=== PATIENT | female | born 1990 | race American Indian/Alaskan Native ===

== ENCOUNTER 2020-02-13 09:56 | Outpatient (REF) | payer OTHER, SELFPAY ==
[2020-02-13 11:58] LABS: Alanine Aminotransferase 20 U/L (0-31); Anion Gap 13 (12-20); Aspartate Amino Transferase 17 U/L (5-31); Blood Urea Nitrogen 9 mg/dL (9-16); Calcium 9.5 mg/dL (8.4-10.2); Carbon Dioxide 27 mmol/L (22-29); Chloride 103 mmol/L (96-108); Cholesterol 169 mg/dL; Estimated Glomerular Filt Rate > 60; Glucose Fasting 86 mg/dL (60-99); HDL Cholesterol 34 mg/dL; LDL Cholesterol Calculated 117 mg/dl; Potassium 4.5 mmol/l (3.3-5.1); Sodium 138 mmol/L (135-145); Triglycerides 93 mg/dL
== END 2020-02-13 09:57 | disposition home or self-care (01) ==
LOC: HO.HMGCLDS 09:56
PROVIDERS: PCP Internal Medicine; Visit Provider Internal Medicine
DX: Z00.01 Encounter for general adult medical examination with abnormal findings (principal); I10 Essential (primary) hypertension
CPT/HCPCS: 80048; 80061; 84450; 84460

== ENCOUNTER 2020-04-15 08:54 | Outpatient (REF) | payer OTHER, SELFPAY ==
[2020-04-20 13:31] LABS: HPV mRNA E6/E7 rflx Not Detected (Not Detected)
== END 2020-04-15 08:55 | disposition home or self-care (01) ==
LOC: HO.LAB 08:54
PROVIDERS: PCP Internal Medicine; Referring Provider Internal Medicine; Visit Provider Advanced Practice Midwife
DX: Z01.419 Encounter for gynecological examination (general) (routine) without abnormal findings (principal); Z11.51 Encounter for screening for human papillomavirus (HPV)
CPT/HCPCS: 36415; 87624; 88142

== ENCOUNTER → 2020-05-13 09:36 | Outpatient (BNVA) | payer OTHER, SELFPAY | PROVIDERS: PCP Internal Medicine; Visit Provider Obstetrics & Gynecology | DX: Z30.09 Encounter for other general counseling and advice on contraception (principal) | CPT/HCPCS: 99212 ==

== ENCOUNTER 2021-05-03 09:04 | Outpatient (REF) | payer OTHER, SELFPAY ==
[2021-05-03 11:22] LABS: MANUAL DIFF FLAG NO
[2021-05-03 11:38] LABS: Basophils Percent Auto 0.2 % (0-2); Eosinophils Absolute Auto 0.1 X10*3/uL (0.0-0.4); Eosinophils Percent Auto 0.8 % (0-4); Hematocrit 41.8 % (37.0-47.0); Hemoglobin 13.3 g/dl (12.0-16.0); Imm Gran Abs Auto 0.04 X10*3/uL (0.00-0.03); Imm Gran Pct Auto 0.5 % (0.0-0.4); Lymphocytes Percent Auto 24.1 % (20-40); Mean Corpuscular HGB Conc 31.8 g/dl (31.0-35.0); Mean Corpuscular Hemoglobin 29.5 pg (27.0-33.0); Mean Corpuscular Volume 92.7 fL (80.0-98.0); Mean Platelet Volume 10.6 fL (9.4-12.3); Monocytes Absolute Auto 0.6 X10*3/uL (0.1-1.2); Monocytes Percent Auto 7.4 % (2-11); Neutrophils Absolute Auto 5.5 x10*3/uL (2.0-8.3); Platelet Count 338 X10*3/uL (160-400); Red Blood Count 4.51 X10*6/uL (4.20-5.50); Red Cell Distribution Width 12.9 % (11.0-16.0); White Blood Count 8.3 X10*3/uL (4.8-10.8)
[2021-05-03 12:13] LABS: Vitamin D 25-OH Total 20.5 ng/mL (>30)
[2021-05-03 12:14] LABS: Alanine Aminotransferase 13 U/L (0-31); Anion Gap 9 (12-20); Aspartate Amino Transferase 14 U/L (5-31); Blood Urea Nitrogen 9 mg/dL (9-16); Calcium 9.7 mg/dL (8.4-10.2); Carbon Dioxide 30 mmol/L (22-29); Chloride 104 mmol/L (96-108); Cholesterol 211 mg/dL; Estimated Glomerular Filt Rate > 60; Glucose Fasting 93 mg/dL (60-99); HDL Cholesterol 34 mg/dL; LDL Cholesterol Calculated 159 mg/dl; Potassium 4.4 mmol/L (3.3-5.1); Sodium 139 mmol/L (135-145); Triglycerides 92 mg/dL
== END 2021-05-03 09:05 | disposition home or self-care (01) ==
LOC: HO.HMGCLDS 09:04
PROVIDERS: PCP Internal Medicine; Visit Provider Internal Medicine
DX: Z00.01 Encounter for general adult medical examination with abnormal findings (principal); Z86.39 Personal history of other endocrine, nutritional and metabolic disease
CPT/HCPCS: 36415; 80048; 80061; 82306; 84450; 84460; 85025

== ENCOUNTER → 2021-06-09 07:57 | Outpatient (BNVA) | payer OTHER, SELFPAY | PROVIDERS: PCP Internal Medicine; Visit Provider Advanced Practice Midwife | DX: Z01.419 Encounter for gynecological examination (general) (routine) without abnormal findings (principal) ==

== ENCOUNTER 2022-03-10 14:12 | Outpatient (REF) | payer OTHER, SELFPAY ==
--- NOTE | ~2022-03-10 | XR_ITS ---
EXAMINATION: XR KNEE, RIGHT CLINICAL INFORMATION: Pain in right knee. COMPARISON: None TECHNIQUE: Four views of the right knee. FINDINGS: No fracture. No dislocation. No joint effusion. Joint spaces are normal. No soft tissue calcification. Sharply marginated ovoid hypodense lesion distal metaphysis of the femur at the lateral side of the bone measuring 0.8 cm. This has a sharp transition zone. No abnormal periosteal reaction. Radiographically benign lesion. 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 XR/XR knee RT 4V IMPRESSION: 1. No acute abnormality. 2. Sharply marginated ovoid hypodense lesion distal femur. 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
== END 2022-03-10 14:13 | disposition home or self-care (01) ==
LOC: HO.HMGCX 14:12
PROVIDERS: PCP Internal Medicine; Visit Provider Internal Medicine
DX: M25.561 Pain in right knee (principal)
CPT/HCPCS: 73564

== ENCOUNTER 2022-05-05 08:42 | Outpatient (REF) | payer OTHER, SELFPAY ==
[2022-05-05 13:43] LABS: Alanine Aminotransferase 14 U/L (0-31); Anion Gap 13 (12-20); Aspartate Amino Transferase 14 U/L (5-31); Blood Urea Nitrogen 7 mg/dL (9-16); Calcium 9.7 mg/dL (8.4-10.2); Carbon Dioxide 29 mmol/L (22-29); Chloride 103 mmol/L (96-108); Cholesterol 208 mg/dL; Estimated Glomerular Filt Rate > 60; Glucose Fasting 99 mg/dL (60-99); HDL Cholesterol 37 mg/dL; LDL Cholesterol Calculated 149 mg/dl; Potassium 4.6 mmol/L (3.3-5.1); Sodium 140 mmol/L (135-145); Triglycerides 110 mg/dL
[2022-05-05 13:58] LABS: Vitamin D 25-OH Total 20.7 ng/mL (>30)
== END 2022-05-05 08:43 | disposition home or self-care (01) ==
LOC: HO.HMGCLDS 08:42
PROVIDERS: PCP Internal Medicine; Visit Provider Internal Medicine
DX: Z00.01 Encounter for general adult medical examination with abnormal findings (principal); E66.9 Obesity, unspecified; E78.5 Hyperlipidemia, unspecified; Z86.39 Personal history of other endocrine, nutritional and metabolic disease
CPT/HCPCS: 36415; 80048; 80061; 82306; 84450; 84460

== ENCOUNTER 2023-01-02 11:02 | Outpatient (AMB) | payer OTHER, SELFPAY ==
[2023-01-02 11:34] VITALS: BP 100/64; BMI 34.1
--- NOTE | 2023-01-02 11:34 | A.OFFVIS_ITS ---
Intake Vital Signs 01/02/23 11:34 Height 5 ft 6 in Weight 211 lb BMI 34.1 BP 100/64 Intake Visit Reasons: BC Consult Intake Note: Scribed for Shraddha Gan CNM by Mckinley Howard certified medical transcriptionist, on 01/02/23 at 11:50 AM, EST Allergies No Known Allergies [No Known Allergies*] Allergy (Verified 01/02/23 11:39) HPI HPI Comments History of Present Illness Details She is a premenopausal woman presenting to discuss control alternatives. She currently has an IUD, inserted 2017. IUD position was confirmed via ultrasound in 2019 due to missing IUD strings during exam. However she has complaints of her IUD moving at times, and is worried this may happen again, and that she may need this replaced now. She denies any contraindications to control such as: migraines with aura, history of DVT or pulmonary emboli, high blood pressure, liver disease, thrombolic disorders, Lupus, +MALCOM, or smoking. She complains of some occasional painful cramping, and occasional intermittent bleeding. She has a boyfriend, but is not currently sexually active. Her foster mother, Makayla Rodriguez, was not present for the appointment, but the patient would like her to be included in future discussion on this topic. [facility] Medical History Dyslipidemia History of vitamin D deficiency Annual visit for general adult medical examination with abnormal findings Obesity (BMI 35.0-39.9 without comorbidity) Mild intellectual disability Adjustment disorder with disturbance of emotion Surgical History No pertinent past surgical history Family History Father Bone cancer HTN (hypertension) CVD (cardiovascular disease) Mother HTN (hypertension) Diabetes mellitus Maternal Grandfather CVD (cardiovascular disease) Maternal Grandmother HTN (hypertension) Paternal Grandmother CVD (cardiovascular disease) Paternal Grandfather Unknown family medical history Brother No problems noted. Sister No problems noted. Son No problems noted. Daughter No problems noted. Social History Housing: House Alcohol intake: never Patient Tobacco Use Status: Never used Tobacco e-Cigarette/Vaping Use: Never Used service: No Current occupational status: unemployed Sexual orientation: Straight/Heterosexual Gender identity: Female Cognitive needs: No Hearing needs: No Vision needs: Yes Female Reproductive History Menstrual Age of Menarche: 9 control method: progestin IUCD (Mirena 05/2016) Total pregnancies: 2 Full term: 2 Number of Living Children: 2 Review of Systems Const All systems reviewed & are unremarkable except as noted in HPI and below Physical Exam Vital Signs: Last Vital Signs BP 100/64 01/02/23 11:34 BMI result Body Mass Index 34.1 Const General: cooperative, healthy appearing and no acute distress Orientation/consciousness: patient oriented x3 Neuro General: patient oriented x3 Assessment & Plan Assessment & Plan (1) control counseling: Code(s): Z30. - Encounter for other general counseling and advice on contraception Plan: Discussed: The various methods of control, including her current Mirena IUD She is currently not sexually active, I discussed the efficacy of BC methods in regards to prevention Provided her with the CDC effectiveness of family planning handout Encouraged condom use for STI if indicated. Encouraged patient to sign up for patient portal. All of her questions and concerns were addressed to the best of my ability We can discuss this at her next appointment for her AG, 04/18/23. She would like to have her foster mother, Makayla, included in this conversation (2) IUD (intrauterine device) in place: Comment: Santiago, 06/02/16 Code(s): Z97.5 - Presence of (intrauterine) contraceptive device Coding Level of Care Code Est Pt Level 3 (28901) Diagnoses control counseling Z30. IUD (intrauterine device) in place Z97.5
== END 2023-01-02 12:05 | disposition home or self-care (01) ==
PROVIDERS: PCP Internal Medicine; Visit Provider Advanced Practice Midwife
DX: Z30.09 Encounter for other general counseling and advice on contraception (principal); Z97.5 Presence of (intrauterine) contraceptive device
CPT/HCPCS: 99213

== ENCOUNTER → 2023-01-02 11:02 | Outpatient (BNVA) | payer OTHER, SELFPAY | PROVIDERS: PCP Internal Medicine; Visit Provider Advanced Practice Midwife | DX: Z30.09 Encounter for other general counseling and advice on contraception (principal); Z97.5 Presence of (intrauterine) contraceptive device | CPT/HCPCS: 99212 ==

== ENCOUNTER 2023-01-02 13:11 | Outpatient (AMB) | payer OTHER, SELFPAY ==
[2023-01-02 14:25] VITALS: BP 102/66; PULSE 86; TEMP 36.7; O2SAT 98; BMI 34.1
--- NOTE | 2023-01-02 14:25 | AM.OFFWIN_ITS ---
Intake Vital Signs 01/02/23 14:25 Height 5 ft 6 in Weight 211 lb BMI 34.1 BP 102/66 Blood Pressure Location Rt brachial Position Sitting Pulse 86 Pulse Source Pulse Oximeter Temp 98.0 F Temp Source Temporal Artery Scan Pulse Oximetry (%) 98 Oxygen Delivery Method Room Air Intake Visit Reasons: EP, left eye discomfort Intake Note: pt is here for c/o left eye discomfort, denies blurry vision or changes vision test: Right eye : 20/20, Left eye : 20/20, both eyes: 20/20, corrected Patient Tobacco Use Status: Never used Tobacco Allergies No Known Allergies [No Known Allergies*] Allergy (Verified 01/02/23 14:25) Do you need a note to return to daycare/school/sports/work: Yes HPI HPI Comments History of Present Illness Details patient is a 32-year-old female in today for sick visit. Patient reports left eye itchiness in discomfort x5 days. Patient denies any blurry vision or eye pain. She states that she noticed a small growth on the inside of her lower eyelid, that ruptured and had whitish-yellow discharge. Patient had in office eye exam. Denies fevers, trauma to the eye, change in vision. She states that she has a history of this happening before but that this is the 1st time she has sought treatment for the issue. Patient's head normocephalic, both TMs visible and pearly grajeda, sinuses nontender, Nares patent. No mastoid tenderness. Patient's right eye has white sclera and pink conjunctiva. Patient's left eye sclera and lower left ey elid shows erythema, no discharge. Pupils are PERRLA. normal accommodation for each eye. Cranial nerves 2-12 intact. Patient's trachea is midline. No lymphadenopathy. Likely has chalazion of the left eye. Patient is unlikely to have acute angle glaucoma, detached retina, or retinal arterial occlusion. Patient will be treated with erythromycin ophthalmic ointment to be taken as directed. Patient has been educated on signs and symptoms of worsening condition and when to present to the walk-in clinic and when to present to the emergency room. Patient has also been educated that she can clean her eyes using a warm compress. She has been instructed to follow-up with her PCP. [facility] Medical History (Updated 01/02/23 @ 15:42 by BABITA Palmer) [facility] Dyslipidemia History of vitamin D deficiency Annual visit for general adult medical examination with abnormal findings Obesity (BMI 35.0-39.9 without comorbidity) Mild intellectual disability Adjustment disorder with disturbance of emotion Surgical History No pertinent past surgical history Family History Father Bone cancer HTN (hypertension) CVD (cardiovascular disease) Mother HTN (hypertension) Diabetes mellitus Maternal Grandfather CVD (cardiovascular disease) Maternal Grandmother HTN (hypertension) Paternal Grandmother CVD (cardiovascular disease) Paternal Grandfather Unknown family medical history Brother No problems noted. Sister No problems noted. Son No problems noted. Daughter No problems noted. Social History Housing: House Alcohol intake: never Patient Tobacco Use Status: Never used Tobacco e-Cigarette/Vaping Use: Never Used service: No Current occupational status: unemployed Sexual orientation: Straight/Heterosexual Gender identity: Female Cognitive needs: No Hearing needs: No Vision needs: Yes Female Reproductive History Menstrual Age of Menarche: 9 Review of Systems Const All systems reviewed & are unremarkable except as noted in HPI and below Denies headache(s) Eyes Denies blind spots, Denies blurry vision, Denies exophthalmos, Denies change in vision, Denies diplopia, Reports eye discharge, Denies dry eyes, Denies floaters, Reports irritation, Reports itchy eyes and Denies loss of vision ENT Denies dizziness, Denies ear discharge, Denies headache(s) and Denies sinus pain Neuro Denies dizziness, Denies headache(s), Denies loss of vision and Denies Other visual disturbances Aller/Immun Reports itchy eyes Physical Exam Vital Signs: Last Vital Signs Temp 98.0 F 01/02/23 14:25 Pulse 86 01/02/23 14:25 BP 102/66 01/02/23 14:25 Pulse Ox 98 01/02/23 14:25 Oxygen Delivery Method Room Air 01/02/23 14:25 BMI result Body Mass Index 34.1 Vital signs have been reviewed and are unremarkable. Const General: cooperative, healthy appearing and no acute distress Orientation/consciousness: patient oriented x3 Limitations: no limitations HEENT Head: Yes normocephalic Ears: external ears normal Face and sinus: Yes face symmetric Mouth: Normal oral and palatal mucosa present Eyes Visual Davis: normal visual davis by confrontation Periorbital: periorbital findings normal Eyelids: Yes eyelid abnormality ( Left eye lower lid erythema, no discharge) Conjunctivae: other Sclerae: scleral abnormal left other ( erythema) Pupils: Equal, round and reactive pupils present and Pupil accommodation reflex normal EOM: EOMs intact bilaterally Direct Ophthalmoscopy: normal light reflex and no photophobia Neck Neck: Yes normal visual inspection Lymphatic: no lymphadenopathy noted Neuro General: patient oriented x3 and CN's II-XI intact bilaterally Cranial nerves: Yes Equal, round and reactive pupils present Assessment & Plan Assessment & Plan (1) Chalazion: Code(s): H00.19 - Chalazion unspecified eye, unspecified eyelid Qualifiers: Laterality: left Eyelid: lower Qualified Code(s): H00.15 - Chalazion left lower eyelid Plan: patient will be prescribed erythromycin ophthalmic ointment to be used as prescribed. Patient had an office exam. Patient educated on signs of worsening symptoms and when to return to the walk-in and when to present to the emergency room. patient also educated to use a warm compress to clear wash left lower eyelid. Coding Level of Care Code New Pt Level 3 (48246) Diagnoses Chalazion of left lower eyelid H00.15 Laterality: left Eyelid: lower Time Spent (min) 20
== END 2023-01-02 15:48 | disposition home or self-care (01) ==
PROVIDERS: PCP Internal Medicine; Visit Provider Nurse Practitioner Primary Care
DX: H00.15 Chalazion left lower eyelid (principal)
CPT/HCPCS: 99203; 99213

== ENCOUNTER 2023-02-01 09:49 | Outpatient (AMB) | payer OTHER, SELFPAY ==
--- NOTE | 2023-02-01 10:20 | MHC.OFFWIV ---
Intake Vital Signs 02/01/23 10:23 Height 5 ft 6 in Weight 211 lb BMI 34.1 BP 100/60 Blood Pressure Location Rt brachial Position Sitting Pulse 78 Pulse Source Pulse Oximeter Temp 97.8 F Temp Source Temporal Artery Scan Pulse Oximetry (%) 97 Oxygen Delivery Method Room Air Intake Visit Reasons: EP, left knee pain Intake Note: Pt is here c/o left knee pain. No falls or injuries noted. Patient Tobacco Use Status: Never used Tobacco Allergies No Known Allergies [No Known Allergies*] Allergy (Verified 01/02/23 14:25) Do you need a note to return to daycare/school/sports/work: No HPI HPI Comments History of Present Illness Details This is a 32-year-old female with mild intellectual disabilities who [facility] presenting independently for evaluation of left knee pain she has had since Sunday. Patient denies any injury or trauma preceding the onset of her discomfort and states her pain is worse with activity. Patient describes her pain as sharp and throbbing and it does not radiate from her knee. [facility] Medical History Chalazion Dyslipidemia History of vitamin D deficiency Annual visit for general adult medical examination with abnormal findings Obesity (BMI 35.0-39.9 without comorbidity) Mild intellectual disability Adjustment disorder with disturbance of emotion Surgical History No pertinent past surgical history Family History Father Bone cancer HTN (hypertension) CVD (cardiovascular disease) Mother HTN (hypertension) Diabetes mellitus Maternal Grandfather CVD (cardiovascular disease) Maternal Grandmother HTN (hypertension) Paternal Grandmother CVD (cardiovascular disease) Paternal Grandfather Unknown family medical history Brother No problems noted. Sister No problems noted. Son No problems noted. Daughter No problems noted. Social History Housing: House Alcohol intake: never Patient Tobacco Use Status: Never used Tobacco e-Cigarette/Vaping Use: Never Used service: No Current occupational status: unemployed Sexual orientation: Straight/Heterosexual Gender identity: Female Cognitive needs: No Hearing needs: No Vision needs: Yes Female Reproductive History Menstrual Age of Menarche: 9 Review of Systems Const All systems reviewed & are unremarkable except as noted in HPI and below Musc Reports arthralgias (left knee) Skin/Breast Reports system reviewed and no additional complaints, except as documented Physical Exam Vital Signs: Last Vital Signs Temp 97.8 F 02/01/23 10:23 Pulse 78 02/01/23 10:23 BP 100/60 02/01/23 10:23 Pulse Ox 97 02/01/23 10:23 Oxygen Delivery Method Room Air 02/01/23 10:23 BMI result Body Mass Index 34.1 Const General: cooperative, healthy appearing, comfortable and no acute distress Nutritional Appearance: average body habitus Orientation/consciousness: oriented to person, oriented to place and oriented to time Limitations: no limitations Skin General skin exam: no rashes or lesions noted Neuro General: oriented to person, oriented to place and oriented to time Extrem General: Yes normal to inspection, Yes full ROM and Yes no calf tenderness Left lower extremity: knee Details: normal to inspection and tenderness (distal quadriceps tendon; no pain to palpation of knee joint or posterior fossa) Location: of the distal upper leg; not of the patella, not of the popliteal fossa, not of the medial joint line and not of the lateral joint line Psych Appearance: grossly normal Mental Status: mental status grossly normal Insight: Good insight present (Psych) Judgement: Good judgement present (Psych) Assessment & Plan Assessment & Plan (1) Quadriceps tendonitis: Code(s): M76.899 - Other specified enthesopathies of unspecified lower limb, excluding foot Plan: Naprosyn 500mg q12 hours, activity as tolerated. Patient to follow-up with PCP within one month for a reevaluation of her symptoms. Medications: New naproxen (Naprosyn) 500 mg PO BID 20 tabs 0RF Coding Level of Care Code Est Pt Level 3 (56285) Diagnoses Quadriceps tendonitis M76.899 Time Spent (min) 20
[2023-02-01 10:23] VITALS: BP 100/60; PULSE 78; TEMP 36.6; O2SAT 97; BMI 34.1
== END 2023-02-01 10:57 | disposition home or self-care (01) ==
PROVIDERS: PCP Internal Medicine; Visit Provider Physician Assistant
DX: M76.899 Other specified enthesopathies of unspecified lower limb, excluding foot (principal)
CPT/HCPCS: 99213

== ENCOUNTER 2023-07-31 14:27 | Outpatient (AMB) | payer OTHER, SELFPAY ==
[2023-07-31 14:40] VITALS: BP 112/70; BMI 33.1
--- NOTE | 2023-07-31 14:40 | MHC.OFFVIS ---
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 And pain on Sunday and she called today for this appointment and was given to her. She has a Mirena IUD that has been in since May 2016 periodically the strings have been missing she was told that it could used for another while. She has not had sex in a long time since her children were born she does have a boyfriend but she has been holding off because she wants to be sure that she has it working IUD. She also has interested in getting her tubes tied. This periods started Sunday and that has when the painful cramps started to she takes time and offer the cramps and it helps PFS Medical History Chalazion Dyslipidemia History of vitamin D deficiency Annual visit for general adult medical examination with abnormal findings Obesity (BMI 35.0-39.9 without comorbidity) Mild intellectual disability Adjustment disorder with disturbance of emotion Surgical History No pertinent past surgical history Family History Father Bone cancer HTN (hypertension) CVD (cardiovascular disease) Mother HTN (hypertension) Diabetes mellitus Maternal Grandfather CVD (cardiovascular disease) Maternal Grandmother HTN (hypertension) Paternal Grandmother CVD (cardiovascular disease) Paternal Grandfather Unknown family medical history Brother No problems noted. Sister No problems noted. Son No problems noted. Daughter No problems noted. Social History Housing: House Alcohol intake: never Patient Tobacco Use Status: Never used Tobacco e-Cigarette/Vaping Use: Never Used service: No Current occupational status: unemployed Sexual orientation: Straight/Heterosexual Gender identity: Female Cognitive needs: No Hearing needs: No Vision needs: Yes Female Reproductive History Menstrual Age of Menarche: 9 Duration of menses: other Date of last menstrual period: 08/24/23 control method: progestin IUCD Total pregnancies: 2 Full term: 2 Date of last pap smear: 04/16/20 (negative,previous pap 2019,WNL) History of abnormal pap smear: No Physical Exam Vital Signs: Last Vital Signs BP 112/70 07/31/23 14:40 BMI result Body Mass Index 33.1 Other: External exam evidence of perineal obstetrical laceration Heavy menses noted multiparous cervix pink smooth healthy appearing no Mirena strings visible nor made visible with probe of Q-tips Cervix mobile nontender unclear if edge of string palpable during exam or not Uterus moderate sized midposition mobile nontender External Female Exam: normal external appearance Speculum Exam - Vagina: normal appearance of the vagina and normal vaginal discharge Speculum Exam - Cervix: normal appearance of the cervix Bimanual exam- vagina & uterus: normal bimanual exam, uterine size normal, consistency normal, uterine mobility normal, uterine shape normal and non-tender Bimanual Exam- Adnexa, other: normal adnexae, no masses and No adnexal tenderness Results Reviewed Results Reviewed: Name: Ramana Monteiro Age/Sex: 29/F Attending: Shraddha Gan CNM : 1990 Submitted by: Shraddha Gan CNM Copies to: Batsheva Conley MD MR #: [id number] Status: DEP REF Collected: 04/15/20 Location: .LAB Received: 04/16/20 Interpretation Satisfactory for evaluation. Scant cellularity due to blood. Negative for intraepithelial lesion or malignancy. Mild inflammation. HPV mRNA E6/E7: NOT DETECTED This assay detects E6/E7 viral messenger RNA (mRNA) from 14 high-risk HPV types (16, 18, 31, 33, 35, 39, 45, 51, 52, 56, 58, 59, 66, 68) HPV testing performed by [facility], [place], [place]. See reference laboratory portion of the EMR for entire report. Clinical Information LMP: 02/27/20 Previous PAP test: 06/28/18, WNL Material Received ThinPrep Cervical Copies To Batsheva Conley MD [facility] [facility] [address] [place] [id number] Shraddha Gan [address] [place] [facility] [place] [id number] Electronically Signed By: Louise Aguayo 04/24/20 1321 The Pap Test is a screening procedure with the inherent possibility of both false negative and false positive results. Results should be interpreted in the context of historic and current clinical findings. Reliability of the Pap Test is enhanced by performing the test on a regular repetitive basis. Patient: Page 1 of 1 Assessment & Plan Assessment & Plan (1) IUD (intrauterine device) in place: Comment: Mirena, 06/02/16 Code(s): Z97.5 - Presence of (intrauterine) contraceptive device Category: Social Hx (2) IUD complication: Comment: patient having increased pain and heavy menses x5 months, especially since Wednesday 07/26 Code(s): T83.9XXA - Unspecified complication of genitourinary prosthetic device, implant and graft, initial encounter Category: Medical Plan Before the exam discussed that if it appeared that it was coming out I would remove it. However I am unable to even see the strings. Apparently the strings have been missing in the past as well I am ordering an ultrasound to be done this week to verify location but she will need to have removal and replacement of the Mirena IUD scheduled with 1 of the providers at the [address] office where there was the ability to have access to the right instruments. She also has interested in talking about tubal ligation and has discussed this in the past. She does not want to get her period Anymore and it has been heavy since beginning of the year in very painful and crampy for her. I am ordering an ultrasound to check for the placement but while she will may need a tele visit to review the results of the ultrasound her next physical appointment should be with 1 of the providers at [facility] to possibly replace the Mirena. Orders: Orders US pelvic and transvaginal Today T83.9XXA - Unspecified complication of genitourinary prosthetic device, implant and graft, initial encounter, Z97.5 - Presence of (intrauterine) contraceptive device Coding Level of Care Code Est Pt Level 3 (27979) Diagnoses IUD (intrauterine device) in place Z97.5 IUD complication T83.9XXA
== END 2023-08-01 10:17 | disposition home or self-care (01) ==
LOC: HO.HWSM 14:27
PROVIDERS: PCP Internal Medicine; Visit Provider Advanced Practice Midwife
DX: N93.9 Abnormal uterine and vaginal bleeding, unspecified (principal); T83.9XXA Unspecified complication of genitourinary prosthetic device, implant and graft, initial encounter
CPT/HCPCS: 99213

== ENCOUNTER 2023-07-31 14:27 | Outpatient (REF) | payer OTHER, SELFPAY ==
[2023-08-01 07:25] LABS: CT PCR NOT DETECTED (Not Detect.); NG PCR NOT DETECTED (Not Detect.)
[2023-08-01 10:51] LABS: Bacterial Vaginosis PCR POSITIVE (Negative); Candida Group PCR NOT DETECTED (Not Detect); Candida glab krusei PCR NOT DETECTED (Not Detect); Trichomonas vaginalis PCR NOT DETECTED (Not Detect)
== END 2023-07-31 14:28 | disposition home or self-care (01) ==
LOC: HO.LAB 14:27
PROVIDERS: PCP Internal Medicine; Visit Provider Advanced Practice Midwife
DX: Z87.42 Personal history of other diseases of the female genital tract (principal)
CPT/HCPCS: 0352U; 0353U; 99212

== ENCOUNTER 2023-08-07 12:36 | Outpatient (REF) | payer OTHER, SELFPAY ==
--- NOTE | ~2023-08-07 | US_ITS ---
EXAMINATION: US PELVIS CLINICAL INFORMATION: Missing IUD string, last menstrual period 07/30/2023, IUD since 2017. COMPARISON: 02/28/2018 TECHNIQUE: Ultrasound of the pelvis is performed using both transabdominal and transvaginal transducers along with Doppler. Transvaginal imaging is performed due to inadequate visualization transabdominally. FINDINGS: The uterus is anteverted and measures 7.9 x 4.9 x 5.[address] within the endometrial cavity. Endometrium is difficult to evaluate due to shadowing from the IUD. No significant free fluid. Right ovary measures 3.2 x 1.8 x 2.6 cm, volume 7.7 mL and is unremarkable. Left ovary measures 3.1 x 2.0 x 2.6 cm, volume 8.3 mL and is unremarkable. Left ovarian 2.2 cm simple cyst is likely physiologic. There is no indication for additional imaging at this time US/US pelvic and transvaginal IMPRESSION: IUD in place within the endometrial cavity. Endometrium is difficult to evaluate due to shadowing from the IUD.
== END 2023-08-07 12:37 | disposition home or self-care (01) ==
LOC: HO.US 12:36
PROVIDERS: PCP Internal Medicine; Visit Provider Advanced Practice Midwife
DX: T83.9XXA Unspecified complication of genitourinary prosthetic device, implant and graft, initial encounter (principal)
CPT/HCPCS: 76830; 76856

== ENCOUNTER 2023-08-16 09:31 | Outpatient (AMB) | payer OTHER, SELFPAY ==
[2023-08-16 10:25] VITALS: BP 116/68; BMI 33.2
--- NOTE | 2023-08-16 10:25 | A.OFFVIS_ITS ---
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 Patient was seen by this provider they beginning of the month for discussion about this and because she is bleeding and having more pain with her perio With the Mirena. She knows it it is pretty much she has had it in for since 2017 she has been avoiding intercourse because she does not want to get she wants a very reliable method of control and she wishes to have her tubes tied. She was examined and plan was made for removal if it appeared that it was being expelled however strings were not visible at all. Patient was sent for ultrasound for assessment of the Mirena however reading of the ultrasound has not yet occurred call placed today for telephone reading and unofficial reading is that the IUD appeared in normal position on the 08/07/2023 ultrasound. Discussed with the patient if it is possible and I can see the string today if she wishes I will remove it but if not she will still need to return to the [facility] office as originally planned for removal of the IUD. I additionally talked to her about an interim method while she does want to get her tubes tied she does not want to get I offered her control pills or Depo-Provera and she thought about it and chose Depo-Provera I explained about Depo-Provera and side effects and the best time to started is with her next period which should be starting next week. Prescription sent for Depo-Provera side effects fully discussed patient to call office at the start of her menses and receive the Depo-Provera shot there and also schedule Mirena removal and tubal ligation consult with the MD. IUD string was not visible with probing of the cervix with Cytobrush so plan is as of patient is in agreement with the plan. [facility] Medical History Chalazion Dyslipidemia History of vitamin D deficiency Annual visit for general adult medical examination with abnormal findings Obesity (BMI 35.0-39.9 without comorbidity) Mild intellectual disability Adjustment disorder with disturbance of emotion Surgical History No pertinent past surgical history Family History Father Bone cancer HTN (hypertension) CVD (cardiovascular disease) Mother HTN (hypertension) Diabetes mellitus Maternal Grandfather CVD (cardiovascular disease) Maternal Grandmother HTN (hypertension) Paternal Grandmother CVD (cardiovascular disease) Paternal Grandfather Unknown family medical history Brother No problems noted. Sister No problems noted. Son No problems noted. Daughter No problems noted. Social History Housing: House Alcohol intake: never Patient Tobacco Use Status: Never used Tobacco e-Cigarette/Vaping Use: Never Used service: No Current occupational status: unemployed Sexual orientation: Straight/Heterosexual Gender identity: Female Cognitive needs: No Hearing needs: No Vision needs: Yes Female Reproductive History Menstrual Age of Menarche: 9 Duration of menses: <3 days Date of last menstrual period: 07/24/23 control method: progestin IUCD Total pregnancies: 2 Full term: 2 Date of last pap smear: 04/16/20 (neg.previous pap 2019 WNL) History of abnormal pap smear: No Physical Exam Vital Signs: Last Vital Signs BP 116/68 08/16/23 10:25 BMI result Body Mass Index 33.2 Other: Normal multiparous pink healthy cervix with normal healthy mucous seen cervix probed with Cytobrush no Mirena string possible to be. External Female Exam: normal external appearance and normal appearance of the urethra Speculum Exam - Vagina: normal appearance of the vagina and normal vaginal discharge Speculum Exam - Cervix: normal appearance of the cervix and Cervical os closed Results AMB Test Urine AMB Test Urine Negative Last Edit by Tyra Quinonez CMA on 08/16/23 10:40 Results Reviewed Results Reviewed: Laboratory Last Values Tst Clinic Negative 08/16/23 10:33 Verbal re being reading of ultrasound done 08/07/2023 showed that the IUD appears in the normal position it has not yet been officially read by Radiology. Assessment & Plan Assessment & Plan (1) IUD complication: Comment: patient having increased pain and heavy menses x5 months, especially since Wednesday 07/26; See note her ultrasound IUDs in place IUD string is still not visible it is not possible to remove it in this office. Patient counseled about control will start on Depo-Provera with start of next menses and patient to see MD for removal of Mirena if possible in office at 05:01 and tubal ligation consultation. Code(s): T83.9XXA - Unspecified complication of genitourinary prosthetic device, implant and graft, initial encounter Category: Medical (2) control counseling: Code(s): Z30.09 - Encounter for other general counseling and advice on contraception Category: Medical (3) Depo-Provera contraceptive status: Code(s): Z30.42 - Encounter for surveillance of injectable contraceptive Category: Social Hx Plan Patient is scheduled at the [facility] for a Mirena removal. Patient was seen by this provider they beginning of the month for discussion about this and because she is bleeding and having more pain with her period With the Mirena. She knows it it is pretty much she has had it in for since 2017 she has been avoiding intercourse because she does not want to get she wants a very reliable method of control and she wishes to have her tubes tied. She was examined and plan was made for removal if it appeared that it was being expelled however strings were not visible at all. Patient was sent for ultrasound for assessment of the Mirena however reading of the ultrasound has not yet occurred call placed today for telephone reading and unofficial reading is that the IUD appeared in normal position on the 08/07/2023 ultrasound. Discussed with the patient if it is possible and I can see the string today if she wishes I will remove it but if not she will still need to return to the [facility] office as originally planned for removal of the IUD. I additionally talked to her about an interim method while she does want to get her tubes tied she does not want to get I offered her control pills or Depo-Provera and she thought about it and chose Depo-Provera I explained about Depo-Provera and side effects and the best time to started is with her next period which should be starting next week. Prescription sent for Depo-Provera side effects fully discussed patient to call office at the start of her menses and receive the Depo-Provera shot there and also schedule Mirena removal and tubal ligation consult with the MD. IUD string was not visible with probing of the cervix with Cytobrush so plan is as of patient is in agreement with the plan. Orders: Orders AMB HCG Urine Test Today Z32.02 - Encounter for test, result negative Medications: New medroxyprogesterone (Depo-Provera) To be given with start of next menses. Mirena IU S(inserted 2016, full menses returned 6 months ago) most likely to be removed when possible. 150 mg IM Q12W 1 mL 5RF Coding Level of Care Code Est Pt Level 3 (71348) Diagnoses IUD complication T83.9XXA control counseling Z30.09 Depo-Provera contraceptive status Z30.42
== END 2023-08-16 11:56 | disposition home or self-care (01) ==
LOC: HO.HWSM 09:31
PROVIDERS: PCP Internal Medicine; Visit Provider Advanced Practice Midwife
DX: T83.9XXA Unspecified complication of genitourinary prosthetic device, implant and graft, initial encounter (principal); Z30.09 Encounter for other general counseling and advice on contraception; Z30.42 Encounter for surveillance of injectable contraceptive; Z32.02 Encounter for pregnancy test, result negative
CPT/HCPCS: 99213

== ENCOUNTER → 2023-08-16 09:31 | Outpatient (BNVA) | payer OTHER, SELFPAY | PROVIDERS: PCP Internal Medicine; Visit Provider Advanced Practice Midwife | DX: T83.9XXA Unspecified complication of genitourinary prosthetic device, implant and graft, initial encounter (principal); Z30.09 Encounter for other general counseling and advice on contraception; Z30.42 Encounter for surveillance of injectable contraceptive | CPT/HCPCS: 81025; 99212 ==

== ENCOUNTER 2023-08-22 14:20 | Outpatient (AMB) | payer OTHER, SELFPAY ==
--- NOTE | 2023-08-22 14:18 | A.OFFVIS_ITS ---
Intake Visit Reasons: TV Ultrasound Results Allergies No Known Allergies [No Known Allergies*] Allergy (Verified 08/22/23 14:18) Medication List - Last Reconciled 08/22/23 by Leatha Morales CNM guaifenesin 200 mg PO Q4H PRN levonorgestrel (Mirena) intrauterine medroxyprogesterone (Depo-Provera) 150 mg IM Q12W Is last menstrual period known: Yes Last menstrual period: 07/31/23 HPI HPI TV Ultrasound Results: Details: This is a tele visit to review patient's ultrasound results which was done to confirm the presence of her Mirena IUD within the uterus because her strings were not visible and could not be retrieved with Cytobrush Patient has had Mirena in many years and believes it has stopped function because her periods returned 5-6 months ago and are getting heavier in crampier She does not want to get and so she has been abstaining from sex until she can be protected from . She actually wants to get her tubes tied and so she has an appointment already set up to see Dr. Peng for tubal ligation consultation and also the Mirena as the strings were not able to be retrieved here so removal in this office was not possible. I have also prescribed Depo-Provera for her to get when she has her next. It has already been delivered to her house by her pharmacy and she has it and is just waiting for her next. She has the tubal consultation appointment IUD removal already set up. [facility] Medical History Chalazion Dyslipidemia History of vitamin D deficiency Annual visit for general adult medical examination with abnormal findings Obesity (BMI 35.0-39.9 without comorbidity) Mild intellectual disability Adjustment disorder with disturbance of emotion Surgical History No pertinent past surgical history Family History Father Bone cancer HTN (hypertension) CVD (cardiovascular disease) Mother HTN (hypertension) Diabetes mellitus Maternal Grandfather CVD (cardiovascular disease) Maternal Grandmother HTN (hypertension) Paternal Grandmother CVD (cardiovascular disease) Paternal Grandfather Unknown family medical history Brother No problems noted. Sister No problems noted. Son No problems noted. Daughter No problems noted. Social History Housing: House Alcohol intake: never Patient Tobacco Use Status: Never used Tobacco e-Cigarette/Vaping Use: Never Used service: No Current occupational status: unemployed Sexual orientation: Straight/Heterosexual Gender identity: Female Cognitive needs: No Hearing needs: No Vision needs: Yes Female Reproductive History Menstrual Age of Menarche: 9 Date of last menstrual period: 07/31/23 control method: progestin IUCD Telehealth Telehealth Telehealth Platform: Telephone Location of provider rendering services: practice address Location of patient: address on file Patient Identification confirmed using: Name, : Yes Telehealth method: voice only Patient verbally consented to treatment: Yes Patient verbally consented to billing insurance company: Yes Patient informed of any privacy concerns related to visit: Yes Minutes spent on Phone/Video with Pt.: 11 Results Reviewed Results Reviewed: Patient: Ramana Monteiro MR#: [id number] : 1990 Acct:[id number] Age/Sex: 32 / F ADM Date: 08/07/23 Loc: HO.US Attending Dr: Leatha Morales CNM Ordering Physician: Leatha Morales CNM Date of Service: 08/07/23 Procedure(s): US pelvic and transvaginal Accession Number(s): [id number] cc: Batsheva Conley MD; Leatha Morales CNM~ EXAMINATION: US PELVIS CLINICAL INFORMATION: Missing IUD string, last menstrual period 07/30/2023, IUD since 2016. COMPARISON: 02/28/2018 TECHNIQUE: Ultrasound of the pelvis is performed using both transabdominal and transvaginal transducers along with Doppler. Transvaginal imaging is performed due to inadequate visualization transabdominally. FINDINGS: The uterus is anteverted and measures 7.9 x 4.9 x 5.[address] within the endometrial cavity. Endometrium is difficult to evaluate due to shadowing from the IUD. No significant free fluid. Right ovary measures 3.2 x 1.8 x 2.6 cm, volume 7.7 mL and is unremarkable. Left ovary measures 3.1 x 2.0 x 2.6 cm, volume 8.3 mL and is unremarkable. Left ovarian 2.2 cm simple cyst is likely physiologic. There is no indication for additional imaging at this time US/US pelvic and transvaginal IMPRESSION: IUD in place within the endometrial cavity. Endometrium is difficult to evaluate due to shadowing from the IUD. Dictated By: Luz John MD Signed By: <Electronically signed by Luz John MD in OV> 08/20/23 1341 DD/ 1345 TD/TT: Medicare Sales Representative: Assessment & Plan Assessment & Plan (1) Depo-Provera contraceptive status: Code(s): Z30.42 - Encounter for surveillance of injectable contraceptive Category: Social Hx (2) IUD complication: Comment: patient having increased pain and heavy menses x5 months, especially since Wednesday 07/26; See note her ultrasound IUDs in place IUD string is still not visible it is not possible to remove it in this office. Patient counseled about control will start on Depo-Provera with start of next menses and patient to see MD for removal of Mirena if possible in office at 05:01 and tubal ligation consultation. Code(s): T83.9XXA - Unspecified complication of genitourinary prosthetic device, implant and graft, initial encounter Category: Medical (3) IUD (intrauterine device) in place: Comment: Mirena, 06/02/16 Code(s): Z97.5 - Presence of (intrauterine) contraceptive device Category: Social Hx Plan This is a tele visit to review patient's ultrasound results which was done to confirm the presence of her Mirena IUD within the uterus because her strings were not visible and could not be retrieved with Cytobrush Patient has had Mirena in many years and believes it has stopped function because her periods returned 5-6 months ago and are getting heavier in crampier She does not want to get and so she has been abstaining from sex until she can be protected from . She actually wants to get her tubes tied and so she has an appointment already set up to see Dr. Peng for tubal ligation consultation and also the Mirena as the strings were not able to be retrieved here so removal in this office was not possible. I have also prescribed Depo-Provera for her to get when she has her next. It has already been delivered to her house by her pharmacy and she has it and is just waiting for her next. She has the tubal consultation appointment IUD removal already set up. In addition I reviewed the ultrasound results with her due to completely within and verifying the IUD in utero and a simple cyst in ovary. Coding Level of Care Code Tele Est Pt Level 3 (45326) Diagnoses Depo-Provera contraceptive status Z30.42 IUD complication T83.9XXA IUD (intrauterine device) in place Z97.5
== END 2023-08-22 14:28 | disposition home or self-care (01) ==
LOC: HO.HWSM 14:20
PROVIDERS: PCP Internal Medicine; Visit Provider Advanced Practice Midwife
DX: Z30.42 Encounter for surveillance of injectable contraceptive (principal); T83.9XXA Unspecified complication of genitourinary prosthetic device, implant and graft, initial encounter; Z97.5 Presence of (intrauterine) contraceptive device
CPT/HCPCS: 99213

== ENCOUNTER → 2023-08-22 14:20 | Outpatient (BNVA) | payer OTHER, SELFPAY | PROVIDERS: PCP Internal Medicine; Visit Provider Advanced Practice Midwife ==

== ENCOUNTER 2023-09-26 08:43 | Outpatient (AMB) | payer OTHER, SELFPAY ==
--- NOTE | 2023-09-26 08:48 | A.OFFVIS_ITS ---
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 The patient had Mirena IUD inserted in 2017 over the last 2 years been having more pelvic cramping. On pelvic exam by Leatha Morales CNM the string was not seen, pelvic ultrasound was done and showed IUD in appropriate position [facility] Medical History Chalazion Dyslipidemia History of vitamin D deficiency Annual visit for general adult medical examination with abnormal findings Obesity (BMI 35.0-39.9 without comorbidity) Mild intellectual disability Adjustment disorder with disturbance of emotion Surgical History No pertinent past surgical history Family History Father Bone cancer HTN (hypertension) CVD (cardiovascular disease) Mother HTN (hypertension) Diabetes mellitus Maternal Grandfather CVD (cardiovascular disease) Maternal Grandmother HTN (hypertension) Paternal Grandmother CVD (cardiovascular disease) Paternal Grandfather Unknown family medical history Brother No problems noted. Sister No problems noted. Son No problems noted. Daughter No problems noted. Social History Housing: House Alcohol intake: never Patient Tobacco Use Status: Never used Tobacco e-Cigarette/Vaping Use: Never Used service: No Current occupational status: unemployed Sexual orientation: Straight/Heterosexual Gender identity: Female Cognitive needs: No Hearing needs: No Vision needs: Yes Female Reproductive History Menstrual Age of Menarche: 9 Date of last menstrual period: 09/18/23 control method: progestin IUCD Review of Systems Const All systems reviewed & are unremarkable except as noted in HPI and below Physical Exam Vital Signs: Last Vital Signs BP 122/74 09/26/23 08:56 BMI result Body Mass Index 33.1 General: Yes no CVA tenderness External Female Exam: normal external appearance and normal appearance of the urethra Speculum Exam - Vagina: normal appearance of the vagina, normal palpation, no lesions and no masses Speculum Exam - Cervix: normal appearance of the cervix, normal palpation, no lesions, no masses and nontender Bimanual exam- vagina & uterus: normal bimanual exam, normal palpation, uterine size normal, normal palpation, uterine shape normal, No Cervical tenderness present and non-tender Bimanual Exam- Adnexa, other: normal adnexae Back/Spine/Pelvis Back: no CVA tenderness Office Procedures IUD Insert/Removal Details Details: The patient is presenting for IUD removal and IUD reinsertion. Her last menstrual period was within the last 5 days, Urine test was done in the office and was negative; All the contraindications were excluded. The following possible complications were discussed with the patient: Intrauterine , Ectopic , Sepsis, Pelvic Infection, Irregular Bleeding and Amenorrhea, Perforation, Expulsion, Ovarian Cysts, Breast Cancer. The following adverse effects were discussed with the patient: alteration of menstrual bleeding pattern, including: unscheduled uterine bleeding decreased uterine bleeding increased scheduled uterine bleeding female genital tract bleeding ,amenorrhea , genital discharge , vulvovaginitis , breast pain , benign ovarian cyst and associated complications , dysmenorrhea , Gastrointestinal disorders abdominal/pelvic pain, headache/migraine , back pain , acne , depression Alternative options were discussed with the patient including but not limited: control pills, patch, NuvaRing, Depo-medroxyprogesterone acetate, Nexplanon, copper IUD, sterilization, vasectomy, others The procedure was explained in detail to patient , at the end patient signed the informed consent obtained. Alternative options were discussed with the patient The patient signed the consent and agreed with the plan; all questions answered. Urine test was done in the office and was negative Preop dx: Requesting IUD removal and Reinsertion Op: IUD removal and Mirena insertion Post op dx: same EBL= 10 cc Procedure: The patient was put in the dorsal lithotomy position a speculum was inserted in the vagina the IUD thread identified. Using a Delmy clamp the thread was grasped and the IUD pulled out with no complications. A no touch technique was used throughout the procedure. A speculum was placed into vagina and cervix was cleaned with betadine). A tenaculum was placed. A plastic sound was advanced through the external and internal os until it reached the fundus of the uterus, the depth was 8 cm. The sound was then withdrawn. The IUD was loaded in a sterile manner and advanced into position. The string was visualized and cut to 3 cm. Tenaculum site hemostatic. All instruments removed from vagina. Patient tolerated the procedure well. NO complications were noted. Patient was instructed to call for fever over 100.4, significant pain unrelieved by Motrin, IUD expulsion, heavy bleeding, or abnormal discharge. In addition, the following clinical considerations were discussed with the patient to call for removal: A stroke or heart attack ,Very severe or migraine headaches ,Unexplained fever ,Yellowing of the skin or whites of the eyes, as these may be signs of serious liver problems , or suspected , Pelvic pain or pain during sex ,HIV positive seroconversion in herself or her partner , Possible exposure to sexually transmitted infections Unusual vaginal discharge or genital sores , severe vaginal bleeding or bleeding that lasts a long time, or if she misses a menstrual period, Inability to feel Mirena's threads Counseled the patient that the IUD does not protect against STI's, recommended use of condoms for the first 7 days post insertion and explained to the patient that condoms are recommended for patients at risk for sexually transmitted infections. Follow up appointment made for 4 weeks following insertion. Date of removal in no more than five years for DUB treatment and 8 years for contraception from today?s date was d/w patient. This note was generated with a voice recognition program. Some errors may have been overlooked during the review of this note. Sometimes these errors may affect the content or meaning of a given sentence. 23202-IKH Insertion 76800-ADP Removal Procedure code (CPT) selection complete Office Meds Mirena 21 mcg/24 hr (up to 8 years) 52 mg intrauterine device Performing Provider: Bo Peng MD [place] [facility] [place] [facility] Documented (not given) by: Bo Peng MD on 09/26/23 09:34 Dose Route Admin Location Dispensed Lot Number Expiration Date [facility] Polysomnography Technician 1 device intrauterine ea Assessment & Plan Assessment & Plan (1) Family planning: Code(s): Z30.09 - Encounter for other general counseling and advice on contraception Category: Medical Plan: Discussed with the patient the different options of control including control pills/Nuvaring, DMPA, different types of IUD ?s ( cu vs progesterone) , sterilization. All the pros, cons, risks and benefits of each were discussed with the patient. The patient decided to go ahead with Mirena IUD removal and reinsertion, explained to the patient that Mirena IUD is FDA for 8 years for contraception in 5 years for menorrhagia, the patient is requesting replacement of her Mirena IUD since she has been experiencing cramping over the last 2 years. Will proceed with removal of Mirena IUD and replace it with a new one , in addition, a more detailed discussion was carried on including mechanism of action, risks (infection, uterine perforation, failure with ectopic pregnanc y, septic AB, ovarian cyst and pelvic pain, increased breast cancer risk and others) benefits (efficient contraceptive method, others), GC/CG were taken and Mirena IUD removal and insertion was done, see procedure. (2) Encounter for IUD removal and reinsertion: Code(s): Z30.433 - Encounter for removal and reinsertion of intrauterine contraceptive device Category: Medical Plan: Mirena IUD removed and a new Mirena IUD inserted, see procedure Orders: Orders AMB IUD Insertion/Removal - Practice Supplied Today Z30.433 - Encounter for removal and reinsertion of intrauterine contraceptive device Medications: New Mirena (levonorgestrel) 1 device intrauterine ONCE 1 ea 0RF Mirena IUD removal and insertion NS Z30.433 - Encounter for removal and reinsertion of intrauterine contraceptive device Coding Level of Care Code Est Pt Level 3 (56523) Procedure Only Diagnoses Family planning Z30.09 Encounter for IUD removal and reinsertion Z30.433 CPT Codes Details - CPT: 97997-EDO Insertion ([id number]) Details - CPT: 74442-KAB Removal ([id number])
[2023-09-26 08:56] VITALS: BP 122/74; BMI 33.1
== END 2023-09-26 09:40 | disposition home or self-care (01) ==
LOC: HO.HWS 08:44
PROVIDERS: PCP Internal Medicine; Visit Provider Obstetrics & Gynecology
DX: Z30.09 Encounter for other general counseling and advice on contraception (principal); Z30.433 Encounter for removal and reinsertion of intrauterine contraceptive device
CPT/HCPCS: 58300; 58301; 99213

== ENCOUNTER 2023-09-26 08:43 | Outpatient (REF) | payer OTHER, SELFPAY ==
[2023-09-27 04:58] LABS: CT PCR NOT DETECTED (Not Detect.); NG PCR NOT DETECTED (Not Detect.)
== END 2023-09-26 08:44 | disposition home or self-care (01) ==
LOC: HO.LNP 08:43
PROVIDERS: PCP Internal Medicine; Visit Provider Obstetrics & Gynecology
DX: Z20.2 Contact with and (suspected) exposure to infections with a predominantly sexual mode of transmission (principal)
CPT/HCPCS: 58300; 58301; 87491; 87591; 99212; J7298

== ENCOUNTER 2023-11-07 08:46 | Outpatient (AMB) | payer OTHER, SELFPAY ==
--- NOTE | 2023-11-07 09:02 | A.OFFVIS_ITS ---
Vital Signs 11/07/23 09:07 Height 5 ft 6 in Weight 205 lb 0.478 oz BMI 33.1 Intake Visit Reasons: 6 weeks IUD Check Engineering Executive Required: No Information Interpreted: non-clinical & clinical Interactive Digital Media Specialist: Interactive Digital Media Specialist Present (Yarely DELONG) Accompanied by: Self / Same As Patient Allergies No Known Allergies [No Known Allergies*] Allergy (Verified 11/07/23 09:09) Is last menstrual period known: No (mirena) HPI Comments Details: The patient is presenting for IUD check after 1 st period following IUD insertion. The patient has no complaints periods are normal, not painful, and flow is normal. 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 Sister No problems noted. Son No problems noted. Daughter No problems noted. Social History Housing: House Alcohol intake: never Patient Tobacco Use Status: Never used Tobacco e-Cigarette/Vaping Use: Never Used service: No Current occupational status: unemployed Sexual orientation: Straight/Heterosexual Gender identity: Female Cognitive needs: No Hearing needs: No Vision needs: Yes Female Reproductive History Menstrual Age of Menarche: 9 Review of Systems Const All systems reviewed & are unremarkable except as noted in HPI and below Physical Exam Vital Signs: BMI result Body Mass Index 33.1 General: Yes no CVA tenderness External Female Exam: normal external appearance and normal appearance of the urethra Speculum Exam - Vagina: normal appearance of the vagina, normal palpation, no lesions and no masses Speculum Exam - Cervix: normal appearance of the cervix, normal palpation, no lesions, no masses, nontender and Other cervical findings present (IUD thread in place) Bimanual exam- vagina & uterus: normal bimanual exam, normal palpation, uterine size normal, normal palpation, uterine shape normal, No Cervical tenderness present and non-tender Bimanual Exam- Adnexa, other: normal adnexae Back/Spine/Pelvis Back: no CVA tenderness Results AMB Test Urine AMB Test Urine Negative Last Edit by Yarely lFor CMA on 09:09 Results Reviewed Results Reviewed: Laboratory Last Values [facility]st Clinic Negative 11/07/23 09:07 Assessment & Plan Assessment & Plan (1) IUD check up: Code(s): Z30.431 - Encounter for routine checking of intrauterine contraceptive device Category: Medical Plan: UPT done in the office was negative. Discussed with the patient the finding on physical exam, IUD string in place, the patient was reassured. Instructions given to patient to call in case of temperature above 100.4, severe cramping/pelvic pain, abnormal discharge or abnormal uterine bleeding or if she misses her menstrual cycle. Otherwise follow-up at her annual exam appointment. All questions answered, the patient verbalized understanding. Orders: Orders AMB HCG Urine Test Today Z32.02 - Encounter for test, result negative Coding Level of Care Code Est Pt Level 3 (63359) Diagnoses IUD check up Z30.431
[2023-11-07 09:07] VITALS: BMI 33.1
== END 2023-11-07 09:14 | disposition home or self-care (01) ==
PROVIDERS: PCP Internal Medicine; Visit Provider Obstetrics & Gynecology
DX: Z32.02 Encounter for pregnancy test, result negative (principal); Z30.431 Encounter for routine checking of intrauterine contraceptive device
CPT/HCPCS: 99213

== ENCOUNTER → 2023-11-07 08:46 | Outpatient (BNVA) | payer OTHER, SELFPAY | PROVIDERS: PCP Internal Medicine; Visit Provider Obstetrics & Gynecology | DX: Z30.431 Encounter for routine checking of intrauterine contraceptive device (principal); Z32.02 Encounter for pregnancy test, result negative | CPT/HCPCS: 81025; 99212 ==

== ENCOUNTER 2024-03-25 09:33 | Outpatient (AMB) | payer OTHER, SELFPAY ==
[2024-03-25 09:45] VITALS: BP 100/70; PULSE 76; RESP 18; TEMP 36.8; O2SAT 98; BMI 33.2
--- NOTE | 2024-03-25 09:45 | A.OFFPC_ITS ---
Vital Signs 03/25/24 09:45 Height 5 ft 6 in Weight 206 lb BMI 33.2 BP 100/70 Blood Pressure Location Rt brachial Position Sitting Respiration 18 Pulse 76 Pulse Source Pulse Oximeter Temp 98.2 F Temp Source Oral Pulse Oximetry (%) 98 Oxygen Delivery Method Room Air Intake Visit Reasons: AnnualPE Intake Note: Pt is here today for her PE: Last papsmear 04/16/20 Allergies No Known Allergies [No Known Allergies*] Allergy (Verified 03/25/24 10:47) Medication List - Last Reconciled 03/25/24 by Batsheva Conley MD levonorgestrel (Mirena) intrauterine Tobacco use date assessed: 03/25/24 Dental Screening Dental Screen Date: 03/25/24 Did you have a dental visit in the last 12 months?: Yes Did you have a dental problem in the last 6 months where you did not have access to dental care?: No Was dental information given to patient?: Patient has dentist HPI AnnualPE HPI Details 33-year-old lady with history of obesity , dyslipidemia, here today for physical exam. She is currently followed at [facility], for her routine Pap and pelvic exam, had IUD inserted last year by Dr. Peng. 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 Sister No problems noted. Son No problems noted. Daughter No problems noted. Social History Housing: House Alcohol intake: never Patient Tobacco Use Status: Never used Tobacco e-Cigarette/Vaping Use: Never Used service: No Current occupational status: unemployed Sexual orientation: Straight/Heterosexual Gender identity: Female Cognitive needs: No Hearing needs: No Vision needs: Yes Female Reproductive History Menstrual Age of Menarche: 9 Date of last menstrual period: 02/27/24 (Spotting for 1 day) control method: progestin IUCD Date of last pap smear: 04/15/20 Other: Goes to [facility] for her routine Pap pelvic exam, had IUD inserted last Questionnaire PHQ-9 Over the last 2 weeks, how often have you been bothered by any of the following problems? 1. Little interest or pleasure in doing things: not at all 2. Feeling down, depressed, or hopeless: not at all 3. Trouble falling or staying asleep, or sleeping too much: not at all 4. Feeling tired or having little energy: not at all 5. Poor appetite or overeating: not at all 6. Feeling bad about yourself - or that you are a failure or have let yourself or your family down: not at all 7. Trouble concentrating on things, such as reading the newspaper or watching television: not at all 8. Moving or speaking so slowly that other people could have noticed. Or the opposite - being so fidgety or restless that you have been moving around a lot more than usual: not at all 9. Thoughts that you would be better off or of hurting yourself in some way: not at all Total score: 0 Depression Screening Interpretation: Negative Depression Screening Done: Yes 18793 - PHQ-9 Billing: Yes Source: Developed by Drs. Rome Garzon, Adelaide Solomon, Shlomo Damon and colleagues, with an educational felicia from [employer]. Thrive Questionnaire Date Thrive assessed: 03/25/24 I am a: Patient What is your living situation today?: I have a steady place to live Within the past 12 months, did the food you bought not last and you didn't have the money to get more?: Never true Within the past 12 months, did you worry whether your food would run out before you got money to buy more?: Never true Do you have trouble paying for medicines?: No Do you have trouble getting transportation to medical appointments?: No Do you have trouble paying your heating and electricity bill?: No Do you have trouble taking care of your child, family member or friend?: No Do you have trouble with day-to-day activities such as bathing, preparing meals, shopping, managing finances, etc.?: No Are you currently unemployed and looking for a job?: No Are you interested in more education?: No Please select the resources that you would like help with: None Currently or been in a relationship where the following occur: No concerns reported THRIVE Score: 0 AUDIT C Alcohol Use Questionnaire (AUDIT-C) 1. How often do you have a drink containing alcohol?: Never Total Score: 0 THONY-7 AMB Questionnaire THONY-7 Date THONY - 7 assessed: 03/25/24 Feeling nervous, anxious, or on edge: 0 = Not at all Not being able to stop or control worryin = Not at all Worrying too much about different things: 0 = Not at all Trouble relaxin = Not at all Being so restless that it is hard to sit still: 0 = Not at all Becoming easily annoyed or irritable: 0 = Not at all Feeling afraid as if something awful might happen: 0 = Not at all Total THONY-7 score (0-4 normal; 5-9 mild; 10-14 moderate; 15-21 severe): 0 Source: Developed by Drs. Rome Garzon, Adelaide Solomon, Shlomo Damon and colleagues, with an educational felicia from [employer]. THONY-7 Assessment Billing THONY-7 Assessment Tool: THONY-7 Assessment 77745 Review of Systems Const Denies body aches, Denies fatigue, Denies fever(s), Denies headache(s) and Denies weakness Eyes Details: Goes to [facility], up-to-date with eye exam Denies change in vision, Denies eye discharge and Denies itchy eyes ENT Denies dizziness, Denies headache(s), Denies nasal congestion, Denies nasal discharge and Denies sore throat Card Denies chest pain, Denies lightheadedness, Denies palpitations and Denies dyspnea Resp Denies chest congestion, Denies cough, Denies dyspnea and Denies wheezing GI Denies abdominal pain, Denies change in bowel habits and Denies heartburn Denies urinary frequency, Denies dysuria and Denies urinary urgency Musc Reports no additional complaints Skin/Breast Denies lesions and Denies rash Neuro Denies dizziness, Denies headache(s) and Denies weakness Psych Reports no additional complaints Endo Denies fatigue, Denies polydipsia, Denies polyuria and Denies palpitations Durga/Lymph Denies easy bruising Aller/Immun Denies itchy eyes, Denies seasonal rhinorrhea and Denies wheezing Physical exam (Primary Care) Vital Signs: Last Vital Signs Temp 98.2 F 03/25/24 09:45 Pulse 76 03/25/24 09:45 Resp 18 03/25/24 09:45 BP 100/70 03/25/24 09:45 Pulse Ox 98 03/25/24 09:45 Oxygen Delivery Method Room Air 03/25/24 09:45 BMI result Body Mass Index 33.2 BMI Assessment/Plan discussion: High BMI High, discussed plan: lifestyle, weight reduction, dietary and physical activity Tobacco/Smoking Status: Tobacco use Status Tobacco use date assessed 03/25/24 03/25/24 09:47 Patient Tobacco Use Status Never used Tobacco 03/25/24 09:47 e-Cigarette/Vaping Use Never Used 03/25/24 09:47 PHQ-9: PHQ-9 Score PHQ-9: Total score 0 03/25/24 10:50 Depression Screening Interpretation: Negative Thrive Assessment: Date of Thrive Assessment Date Thrive assessed 03/25/24 03/25/24 09:47 Currently or been in a relationship where the following occur: No concerns reported Const General: cooperative, comfortable and no acute distress Nutritional Appearance: obese Orientation/consciousness: patient oriented x3 HENMT Head: Yes normocephalic and Yes atraumatic Ears: hearing grossly normal bilaterally, external ears normal, TM's normal bilaterally and EAC's normal General nose exam: Normal external nose present and No nasal discharge present Face and sinus: Yes face symmetric Mouth: Normal oral and palatal mucosa present and moist mucous membranes Eyes General: appearance normal, both eyes and all related structures Neck Neck: Yes full ROM, Yes no lymphadenopathy and Yes supple Thyroid: Thyroid normal Chest Chest palpation & inspection: normal inspection of the chest Breast/axilla inspection: normal inspection of the breasts Breast/axilla palpation: normal palpation of the breasts Resp Effort & Inspection: normal respiratory effort and able to speak in complete sentences Cardio Palpation: normal PMI Rate: regular rate Rhythm: regular rhythm Heart sounds: S1 normal heart sound present and S2 normal heart sound present Bruits: no abdominal aortic bruits GI Inspection: Yes normal to inspection and Yes striae Palpation (GI): No Abdominal aortic bruit present, Soft to palpation, nontender, no guarding and no masses Auscultation: normal bowel sounds General: Yes no CVA tenderness and Yes deferred (sees [facility]) Back/Spine/Pelvis Back: no CVA tenderness and No back tenderness Skin General skin exam: no rashes or lesions noted Lesions: no lesions Rashes: no rashes Neuro General: patient oriented x3, gait normal, tone normal, moves all extremities, Normal light touch and pain sensation, no focal motor deficits and CN's II-XI intact bilaterally Extrem General: Yes full ROM, Yes no joint enlargement, Yes no pedal edema and Yes normal gait Psych Appearance: grossly normal and well kempt Mental Status: mental status grossly normal Speech and movement: Normal speech and movement present Affect: normal affect Attitude: cooperative Thought process: Normal thought process present Thought content: Normal thought content present Office Procedures Flu Questionnaire Does the patient have a severe egg allergy?: No Does the patient have severe life threatening allergies?: No Does the patient have a fever or illness today?: No Has the patient ever had Guillain-[place] Syndrome?: No Has the patient ever had any past reaction to a flu shot?: No Immunizations Fluarix Triv [id number] (PF) 45 mcg (15 mcg x 3)/0.5 mL IM syringe Performing Provider: Batsheva Conley MD Performing Location: [facility] Administered by: Monique Gaxiola CMA on 03/25/24 11:12 Dose Route Admin Location Dispensed Lot Number Expiration Date [facility] Clinical Implementation Specialist 0.5 mL IM Right Deltoid 0.5 mL [id number] 08/25/24 [id number] [employer] VIS Given Date VIS Provided VIS Publication Date 03/25/24 Single Vaccine 20 Eligibility Eligibility Date Funding Source Not [facility] Eligible 03/25/24 Private Coding Diagnoses Obesity (BMI 35.0-39.9 without comorbidity) E66.9 Annual visit for general adult medical examination with abnormal findings Z00.01 History of vitamin D deficiency Z86.39 Dyslipidemia E78.5 Exposure to genital herpes Z20.2 Additional Codes PHQ-9 - 78201 - PHQ-9 Billing: Yes ([id number]) THONY-7 Assessment Billing - THONY-7 Assessment Tool: THONY-7 Assessment 96826 ([id number]) Assessment & Plan Assessment & Plan (1) Obesity (BMI 35.0-39.9 without comorbidity): Code(s): E66.9 - Obesity, unspecified Category: Medical (2) Annual visit for general adult medical examination with abnormal findings: Code(s): Z00.01 - Encounter for general adult medical examination with abnormal findings Category: Medical Plan: Will check appropriate labs. Recommended dental visit every 6 months and regular eye exams, at least every 2 years. Take adequate calcium in diet and vitamin-D 3 at 2000 IU per cap once a day, in addition to weight-bearing exercises to help maintain good muscle tone and weight control. Instructed to do self-breast exam, and recommended to get yearly mammogram, starting at age 40. Currently being seen at [facility] for routine Pap and pelvic exam, has Mirena IUD inserted last year. Flu vaccine given today, up-to-date with Tdap, r eminded to get COVID booster (3) History of vitamin D deficiency: Code(s): Z86.39 - Personal history of other endocrine, nutritional and metabolic disease Category: Medical Plan: Will check vitamin-D (4) Dyslipidemia: Code(s): E78.5 - Hyperlipidemia, unspecified Category: Medical Plan: Fasting lipid panel ordered, reinforced importance of following a healthy diet and getting regular exercise (5) Exposure to genital herpes: Code(s): Z20.2 - Contact with and (suspected) exposure to infections with a predominantly sexual mode of transmission Category: Medical Plan: Counseling regarding safe sex practices, advised to have sex partners wear condoms at all times. Ordered HSV antibody IgG Orders: Orders Alanine Aminotransferase Today E66.9 - Obesity, unspecified, E78.5 - Hyperlipidemia, unspecified, Z00.01 - Encounter for general adult medical examination with abnormal findings, Z86.39 - Personal history of other endocrine, nutritional and metabolic disease Basic Metabolic Panel Fasting Today E66.9 - Obesity, unspecified, E78.5 - Hyperlipidemia, unspecified, Z00.01 - Encounter for general adult medical examination with abnormal findings, Z86.39 - Personal history of other endocrine, nutritional and metabolic disease Vitamin D 25-OH Total Today E66.9 - Obesity, unspecified, E78.5 - Hyperlipidemia, unspecified, Z00.01 - Encounter for general adult medical examination with abnormal findings, Z86.39 - Personal history of other endocrine, nutritional and metabolic disease Influenza [id number] Immunization Today Z23 - Encounter for immunization Herpes Simplex Virus Ab IgG Today Z20.2 - Contact with and (suspected) exposure to infections with a predominantly sexual mode of transmission Aspartate Amino Transferase Today E66.9 - Obesity, unspecified, E78.5 - Hyperlipidemia, unspecified, Z00.01 - Encounter for general adult medical examination with abnormal findings, Z86.39 - Personal history of other endocrine, nutritional and metabolic disease Lipid Panel Today E66.9 - Obesity, unspecified, E78.5 - Hyperlipidemia, unspecified, Z00.01 - Encounter for general adult medical examination with abnormal findings, Z86.39 - Personal history of other endocrine, nutritional and metabolic disease Medications: New guaifenesin 200 mg (10 mL) PO Q4H PRN 500 mL 1RF cough
== END 2024-03-25 11:17 | disposition home or self-care (01) ==
PROVIDERS: PCP Internal Medicine; Visit Provider Internal Medicine
DX: Z23 Encounter for immunization (principal)

== ENCOUNTER 2024-03-25 09:33 | Outpatient (REF) | payer OTHER, SELFPAY ==
[2024-03-25 14:14] LABS: Alanine Aminotransferase 15 U/L (0-31); Anion Gap 9 (12-20); Aspartate Amino Transferase 19 U/L (5-31); Blood Urea Nitrogen 8 mg/dL (9-16); Calcium 9.5 mg/dL (8.4-10.2); Carbon Dioxide 29 mmol/L (22-29); Chloride 105 mmol/L (96-108); Cholesterol 206 mg/dL (<200); Estimated Glomerular Filt Rate > 60; Glucose Fasting 87 mg/dL (60-99); HDL Cholesterol 37 mg/dL (>40); LDL Cholesterol Calculated 152 mg/dL (<100); Potassium 4.2 mmol/L (3.3-5.1); Sodium 139 mmol/L (135-145); Triglycerides 87 mg/dL (<150)
[2024-03-25 14:33] LABS: Vitamin D 25-OH Total 35.5 ng/mL (>30)
[2024-03-26 21:57] LABS: Herpes Simplex Type 1 IgG 9.19 index; Herpes Simplex Type 2 IgG 6.85 index
== END 2024-03-25 09:34 | disposition home or self-care (01) ==
LOC: HO.HMGCLDS 09:33
PROVIDERS: PCP Internal Medicine; Visit Provider Internal Medicine
DX: Z00.01 Encounter for general adult medical examination with abnormal findings (principal); Z23 Encounter for immunization; E66.9 Obesity, unspecified; Z68.33 Body mass index [BMI] 33.0-33.9, adult; E78.5 Hyperlipidemia, unspecified; Z20.2 Contact with and (suspected) exposure to infections with a predominantly sexual mode of transmission; Z86.39 Personal history of other endocrine, nutritional and metabolic disease
CPT/HCPCS: 36415; 80048; 80061; 82306; 84450; 84460; 86695; 86696; 90471; 90656; 96127; 99395